=== PATIENT | female | born 1965 | race Caucasian/White ===

== ENCOUNTER 2019-06-10 16:59 | Emergency (ER) | payer OTHER ==
[~2019-06-10] VITALS: Ht 160 cm; Wt 93.9 kg
[2019-06-10 17:19] VITALS: Ht 160 cm; Wt 93.9 kg
[2019-06-10 19:14] VITALS: BP 144/82
== END 2019-06-10 19:14 | disposition home or self-care (01) ==
LOC: ED 16:59
DX: M25.511 Pain in right shoulder (principal); M25.521 Pain in right elbow
CPT/HCPCS: J1885

== ENCOUNTER 2019-06-29 20:49 | Emergency (ER) | payer OTHER ==
[~2019-06-29] VITALS: Ht 160 cm; Wt 93.0 kg
[2019-06-29 20:58] VITALS: Ht 160 cm; Wt 93.0 kg
[2019-06-29 22:48] VITALS: BP 137/77
== END 2019-06-29 22:48 | disposition home or self-care (01) ==
LOC: ED 20:49
DX: S16.1XXA Strain of muscle, fascia and tendon at neck level, initial encounter (principal); M25.511 Pain in right shoulder; X58.XXXA Exposure to other specified factors, initial encounter; Y93.89 Activity, other specified; Y92.89 Other specified places as the place of occurrence of the external cause; Y99.8 Other external cause status
CPT/HCPCS: J1885